=== PATIENT | female | born 1945 | race Caucasian/White ===

== ENCOUNTER 2023-07-11 16:06 | Observation (INO) | payer MEDICARE ==
--- NOTE | 2023-07-11 16:26 | ED ---
General Adult HPI - General Source: patient, RN notes reviewed, Caregiver Mode of arrival: wheelchair Limitations: no limitations <Britni Cason - Last Filed: 07/11/23 16:23> <Joshua Castro - Last Filed: 07/11/23 22:22> - General Stated complaint: Eye issues-sent from Eye Dr Time Seen by Provider: 07/11/23 16:23 - History of Present Illness Initial comments: Quick note: 78 year old female presents to the emergency department for eval uation sent from automotive service writer, Dr. Baker. Patients caregiver states that she saw the eye doctor today and he told her that there were new plaques in her eye. She states she believes that this is her left eye. He advised patient to come to for lab work and CT. (Britni Cason) Patient is a 78-year-old female who was sent in by her automotive service writer Dr. Baker for stroke workup. Patient has a history of Alzheimer's dementia and usually is A and O x 1-2 which is her baseline. No acute complaints at this time. 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 Patient denies any acute visual changes in the right eye or other acute complaints but was sent here for stroke workup and possible admission. Patient is at her current baseline status at this time. She has been more tired lately at her nursing facility per patient's family member. No other acute complaints at this time. Does have occasional word finding issues. Presents for further evaluation. No acute neurological changes recently per patient or patient's family. (Joshua Castro) - Related Data Home Medications Medication Instructions Recorded Confirmed Benazepril HCl [Lotensin] 20 mg PO DAILY 07/11/23 07/11/23 Bisoprolol-Hctz 10-6.25 mg [Ziac 1 tab PO DAILY 07/11/23 07/11/23 10-6.25 MG] Cholecalciferol [Vitamin D3 (125 125 mcg PO DAILY 07/11/23 07/11/23 Mcg = 5000 Iu)] Colestipol HCl 1 gm PO BID@0800,199907/11/23 07/11/23 Folic Acid 1 mg PO DAILY 07/11/23 07/11/23 Ibuprofen [Advil] 200 mg PO DAILY@0800 07/11/23 07/11/23 Melatonin 10 mg PO HS 07/11/23 07/11/23 Mesalamine [Lialda] 2.4 gm PO BID 07/11/23 07/11/23 Multivit-Min/Iron/Folic/Lutein 1 tab PO DAILY 07/11/23 07/11/23 [Centrum Silver Women Tablet] Rivastigmine Tartrate 1.5 mg PO BID 07/11/23 07/11/23 [Rivastigmine] Rosuvastatin Calcium 5 mg PO DAILY 07/11/23 07/11/23 Vit C/E/Zn/Coppr/Lutein/Zeaxan 2 cap PO BID 07/11/23 07/11/23 [Preservision Areds 2 Softgel] Allergies Allergy/AdvReac Type Severity Reaction Status Date / Time gabapentin Allergy Anaphylaxis Verified 07/11/23 17:53 Sulfa (Sulfonamide Allergy Anaphylaxis Verified 07/11/23 17:53 Antibiotics) morphine AdvReac Itching Verified 07/11/23 17:53 Review of Systems ROS Other: All systems not noted in ROS Statement are negative. <Britni Cason - Last Filed: 07/11/23 16:23> ROS Other: All systems not noted in ROS Statement are negative. <Joshua Castro - Last Filed: 07/11/23 22:22> ROS Statement: Those systems with pertinent positive or pertinent negative responses have been documented in the HPI. Review of Systems: CONST: Denies fever EYES: Denies blurry vision ENT: Denies nasal congestion C/V: Denies Chest pain RESP: Denies shortness of breath GI: Denies abdominal pain : Denies dysuria SKIN: Denies rash. MSK: Denies joint pain. NEURO: Denies headache (Joshua Castro) General Exam <Britni Cason - Last Filed: 07/11/23 16:23> <Joshua Castro - Last Filed: 07/11/23 22:22> - General Exam Comments Initial Comments: Visual Physical Exam Vital signs reviewed General: Well-appearing, nontoxic, no acute distress. Head: Normocephalic, atraumatic Eyes: PERRLA, EOMI ENT: Airway patent Chest: Nonlabored breathing Skin: No visual rash, normal skin tone Neuro: Alert and oriented 3 Musculoskeletal: No gross abnormalities (Britni Cason) General: Appears in no acute distress. HEAD: Normal with no signs of head trauma. EYES: PERRLA, EOMI, conjunctiva normal, no discharge. 3 mm and equal bilaterally. ENT: Hearing grossly intact, normal oropharynx. RESPIRATORY: Clear breath sounds bilaterally. No wheezes, rales, or rhonchi. C/V: Regular rate and rhythm. S1 and S2 auscultated, no edema, peripheral pulses 2+ and intact throughout ABD: Abd is soft, nontender, nondistended EXT: Normal range of motion, no obvious deformity SKIN: No rashes or lesions observed on exposed skin. NEURO: Alert and oriented x 1-2 which is patient's baseline with history of dementia. No focal deficits. NIH is 0 for acute deficits. Has chronic word finding issues which is not new. Symptoms confirmed and the chronicity with patient's family member who is at bedside. (Joshua Castro) Course Vital Signs 07/11/23 07/11/23 16:11 19:48 Temperature 97.4 F L Pulse Rate 81 66 Respiratory 18 17 Rate Blood Pressure 143/71 176/93 O2 Sat by Pulse 94 L 99 Oximetry Medical Decision Making <Britni Cason - Last Filed: 07/11/23 16:23> - Lab Data Result diagrams: 07/11/23 16:54 07/11/23 16:54 - EKG Data -: EKG Interpreted by Tx <Joshua Castro - Last Filed: 07/11/23 22:22> - Medical Decision Making Quick note preformed and electronically signed by Britni Cason PA-C (Britni Cason) Was pt. sent in by a medical professional or institution ([facility], BO[employer], urgent care, hospital, or custodial...) When possible be specific @ -No Did you speak to anyone other than the patient for history (EMS, parent, family, police, friend...)? What history was obtained from this source @ -Spoke with patient's sister who is the primary historian for the patient. Did you review nursing and triage notes (agree or disagree)? Why? @ -I reviewed and agree with nursing and triage notes Were old charts reviewed (outside hosp., previous admission, EMS record, old EKG, old radiological studies, urgent care reports/EKG's, custodial records)? Report findings @ -Reviewed charts from Dr. Baker's office and evaluation including the finding of the plaque in the right eye. Differential Diagnosis (chest pain, altered mental status, abdominal pain women, abdominal pain men, vaginal bleeding, weakness, fever, dyspnea, syncope, headache, dizziness, GI bleed, back pain, seizure, CVA, palpatations, mental health, musculoskeletal)? @ -Differential CVA Ischemic stroke, hemorrhagic stroke, brain tumor, atypical migraine, Wernicke's encephalopathy, seizure, multiple sclerosis, meningitis, encephalitis, hypoglycemia, Guillain-Zimmerman, electrolytes disturbance, myasthenia gravis.... This is not meant to be an all-inclusive list EKG interpreted by me (3pts min.). @ -As above X-rays interpreted by me (1pt min.). @ -Chest x-ray reveals no obvious acute cardiopulmonary process. CT interpreted by me (1pt min.). @ -CT of the brain reveals no obvious acute intracranial process. CT angiogram of the head and neck reveals no obvious acute process. U/S interpreted by me (1pt. min.). @ -None done What testing was considered but not performed or refused? (CT, X-rays, U/S, labs)? Why? @ -None What meds were considered but not given or refused? Why? @ -None Did you discuss the management of the patient with other professionals (professionals i.e. DrJewels, PA, BOARD HANDLER, lab, RT, psych nurse, social work specialist, instructor business education, teacher, upscale security officer, case planner)? Give summary @ -Discussed with neurologist, Dr. Canales who was in agreement with plan for admission. Recommended admission for MRI evaluation as patient was sent by automotive service writer with this concern. Discussed results with him. He was other shen in agreement this plan. Discussed with admitting team, Dr. Subramanian who is covering for Dr. Lynch who accepted the admission. Was smoking cessation discussed for >3mins.? @ -No Was critical care preformed (if so, how long)? @ -No Were there social determinants of health that impacted care today? How? (Homelessness, low income, unemployed, alcoholism, drug addiction, transportation, low edu. Level, literacy, decrease access to med. care, prison, rehab)? @ -No Was there de-escalation of care discussed even if they declined (Discuss DNR or withdrawal of care, Hospice)? DNR status @ -No What co-morbidities impacted this encounter? (DM, HTN, Smoking, COPD, CAD, Cancer, CVA, ARF, Chemo, Hep., AIDS, mental health diagnosis, sleep apnea, morbid obesity)? @ -Alzheimer's dementia Was patient admitted / discharged? Hospital course, mention meds given and route, prescriptions, significant lab abnormalities, going to OR and other pertinent info. @ -Based on patient's presentation and physical exam, presents for stroke evaluation. A plaque was found incidentally on routine ophthalmology exam. Sent by Dr. Baker's office. NIH is currently 0 for any acute process. Patient is not a tPA candidate as risks for outweigh the benefits with an NIH of 0. Family was in agreement with this plan. She is currently at her baseline mental status. We will obtain CT imaging, as well as stroke labs. Family in agreement this plan. Laboratory studies remarkable for what appears to be a UTI. Urine culture sent. Patient was started on IV Rocephin. EKG shows no signs of acute ischemia. Imaging unremarkable. I did discuss the imaging results with Dr. Canales of neurology who recommended admission for MRI and further workup. I discussed this with family who was in agreement this plan. I spoke with the admitting physician, Dr. Subramanian who accepted the patient. She is covering for Dr. Lynch. Undiagnosed new problem with uncertain prognosis? @ -No Drug Therapy requiring intensive monitoring for toxicity (Heparin, Nitro, Insulin, Cardizem)? @ -No Were any procedures done? @ -No Diagnosis/symptom? @ -Eye plaque, evaluation for CVA,Dementia Acute, or Chronic, or Acute on Chronic? @ -Acute Uncomplicated (without systemic symptoms) or Complicated (systemic symptoms)? @ -Uncomplicated Side effects of treatment? @ -No Exacerbation, Progression, or Severe Exacerbation? @ -No Poses a threat to life or bodily function? How? (Chest pain, [place], [place], pneumonia, PE, COPD, DKA, ARF, appy, cholecystitis, CVA, Diverticulitis, Homicidal, Suicidal, threat to staff... and all critical care pts) @ -Unlikely (Joshua Castro) - Lab Data Lab Results 07/11/23 07/11/23 07/11/23 Range/Units 16:54 16:54 16:54 WBC 9.8 (3.8-10.6) k/uL RBC 4.79 (3.80-5.40) m/uL Hgb 14.4 (11.4-16.0) gm/dL Hct 43.2 (34.0-46.0) % MCV 90.2 (80.0-100.0) fL MCH 30.1 (25.0-35.0) pg MCHC 33.3 (31.0-37.0) g/dL RDW 14.2 (11.5-15.5) % Plt Count 359 (150-450) k/uL MPV 7.2 Neutrophils % 66 % Lymphocytes % 23 % Monocytes % 6 % Eosinophils % 2 % Basophils % 1 % Neutrophils # 6.4 (1.3-7.7) k/uL Lymphocytes # 2.3 (1.0-4.8) k/uL Monocytes # 0.6 (0-1.0) k/uL Eosinophils # 0.2 (0-0.7) k/uL Basophils # 0.1 (0-0.2) k/uL PT 10.1 (10.0-12.5) sec INR 0.9 (<1.2) APTT 22.9 (22.0-30.0) sec Sodium 131 L (137-145) mmol/L Potassium 3.6 (3.5-5.1) mmol/L Chloride 96 L (98-107) mmol/L Carbon Dioxide 27 (22-30) mmol/L Anion Gap 8 mmol/L BUN 11 (7-17) mg/dL Creatinine 0.58 (0.52-1.04) mg/dL Est GFR (CKD-EPI)AfAm >90 (>60 ml/min/1.73 sqM) Est GFR (CKD-EPI)NonAf 89 (>60 ml/min/1.73 sqM) Glucose 104 H (74-99) mg/dL Calcium 9.8 (8.4-10.2) mg/dL Total Bilirubin 0.4 (0.2-1.3) mg/dL AST 27 (14-36) U/L ALT 18 (4-34) U/L Alkaline Phosphatase 101 (38-126) U/L Creatine Kinase 66 (30-135) U/L C-Reactive Protein <0.5 (<1.0) mg/dL Total Protein 7.7 (6.3-8.2) g/dL Albumin 4.7 (3.5-5.0) g/dL Urine Color Urine Appearance (Clear) Urine pH (5.0-8.0) Ur Specific [place] (1.001-1.035) Urine Protein (Negative) Urine Glucose (UA) (Negative) Urine Ketones (Negative) Urine Blood (Negative) Urine Nitrite (Negative) Urine Bilirubin (Negative) Urine Urobilinogen (<2.0) mg/dL Ur Leukocyte Esterase (Negative) Urine RBC (0-5) /hpf Urine WBC (0-5) /hpf Urine WBC Clumps (None) /hpf Ur Squamous Epith Cells (0-4) /hpf Urine Bacteria (None) /hpf Influenza Type A (PCR) (Not Detectd) Influenza Type B (PCR) (Not Detectd) RSV (PCR) (Not Detectd) SARS-CoV-2 (PCR) (Not Detectd) 07/11/23 07/11/23 Range/Units 16:55 16:55 WBC (3.8-10.6) k/uL RBC (3.80-5.40) m/uL Hgb (11.4-16.0) gm/dL Hct (34.0-46.0) % MCV (80.0-100.0) fL MCH (25.0-35.0) pg MCHC (31.0-37.0) g/dL RDW (11.5-15.5) % Plt Count (150-450) k/uL MPV Neutrophils % % Lymphocytes % % Monocytes % % Eosinophils % % Basophils % % Neutrophils # (1.3-7.7) k/uL Lymphocytes # (1.0-4.8) k/uL Monocytes # (0-1.0) k/uL Eosinophils # (0-0.7) k/uL Basophils # (0-0.2) k/uL PT (10.0-12.5) sec INR (<1.2) APTT (22.0-30.0) sec Sodium (137-145) mmol/L Potassium (3.5-5.1) mmol/L Chloride (98-107) mmol/L Carbon Dioxide (22-30) mmol/L Anion Gap mmol/L BUN (7-17) mg/dL Creatinine (0.52-1.04) mg/dL Est GFR (CKD-EPI)AfAm (>60 ml/min/1.73 sqM) Est GFR (CKD-EPI)NonAf (>60 ml/min/1.73 sqM) Glucose (74-99) mg/dL Calcium (8.4-10.2) mg/dL Total Bilirubin (0.2-1.3) mg/dL AST (14-36) U/L ALT (4-34) U/L Alkaline Phosphatase (38-126) U/L Creatine Kinase (30-135) U/L C-Reactive Protein (<1.0) mg/dL Total Protein (6.3-8.2) g/dL Albumin (3.5-5.0) g/dL Urine Color Colorless Urine Appearance Cloudy H (Clear) Urine pH 6.0 (5.0-8.0) Ur Specific [place] 1.005 (1.001-1.035) Urine Protein Negative (Negative) Urine Glucose (UA) Negative (Negative) Urine Ketones Negative (Negative) Urine Blood Trace H (Negative) Urine Nitrite Positive H (Negative) Urine Bilirubin Negative (Negative) Urine Urobilinogen <2.0 (<2.0) mg/dL Ur Leukocyte Esterase Large H (Negative) Urine RBC 5 (0-5) /hpf Urine WBC >182 H (0-5) /hpf Urine WBC Clumps Many H (None) /hpf Ur Squamous Epith Cells 1 (0-4) /hpf Urine Bacteria Moderate H (None) /hpf Influenza Type A (PCR) Not Detected (Not Detectd) Influenza Type B (PCR) Not Detected (Not Detectd) RSV (PCR) Not Detected (Not Detectd) SARS-CoV-2 (PCR) Not Detected (Not Detectd) - EKG Data EKG Comments: 12-lead Electrocardiogram Interpretation Note EKG was reviewed and interpreted by myself. 12-lead ECG performed at 1849 is interpreted by me as revealing normal sinus rhythm at a rate of 62 beats per minute. [place] is normal. ME interval is 169 ms, QRS durations 93 ms, QTc is 442 ms.. There were no ST or T wave abnormalities to suggest myocardial ischemia or injury. R wave progression across the precordium was satisfactory. By my interpretation this EKG is non-diagnostic for acute ischemia. (Joshua Castro) Disposition <Britni Cason - Last Filed: 07/11/23 16:23> Time of Disposition: 21:30 <Joshua Castro - Last Filed: 07/11/23 22:22> Clinical Impression: Hollenhorst plaque, right eye, Dementia Disposition: ADMITTED IP TO THIS HOSP Condition: Stable Referrals: To Lynch MD [Primary Care Provider] - 1-2 days
[2023-07-11] MEDS: SODIUM CHLORIDE 0.9% 1,000 ML IV STA (17:16)
[2023-07-11 17:21] LABS: Basophils # (A) 0.1 k/uL (0-0.2); Basophils % (A) 1 %; Eosinophils # (A) 0.2 k/uL (0-0.7); Eosinophils % (A) 2 %; HCT 43.2 % (34.0-46.0); HGB 14.4 gm/dL (11.4-16.0); Lymphocytes # (A) 2.3 k/uL (1.0-4.8); Lymphocytes % (A) 23 %; MCH 30.1 pg (25.0-35.0); MCHC 33.3 g/dL (31.0-37.0); MCV 90.2 fL (80.0-100.0); Mean Platelet Volume 7.2; Monocytes # (A) 0.6 k/uL (0-1.0); Monocytes % (A) 6 %; Neutrophils # (A) 6.4 k/uL (1.3-7.7); Neutrophils % (A) 66 %; Platelet Count 359 k/uL (150-450); RBC 4.79 m/uL (3.80-5.40); RDW 14.2 % (11.5-15.5); WBC 9.8 k/uL (3.8-10.6)
[2023-07-11 17:27] LABS: INR 0.9 (<1.2); Partial Thromboplastin Time 22.9 sec (22.0-30.0); Prothrombin Time 10.1 sec (10.0-12.5)
[2023-07-11 17:30] LABS: ALT 18 U/L (4-34); AST 27 U/L (14-36); African American GFR (CKD) >90 (>60 ml/min/1.73 sqM); Albumin 4.7 g/dL (3.5-5.0); Alkaline Phosphatase 101 U/L (38-126); Anion Gap 8 mmol/L; Blood Urea Nitrogen 11 mg/dL (7-17); C Reactive Protein <0.5 mg/dL (<1.0); Calcium 9.8 mg/dL (8.4-10.2); Carbon Dioxide 27 mmol/L (22-30); Chloride 96 mmol/L (98-107); Creatine Kinase 66 U/L (30-135); Glucose 104 mg/dL (74-99); Non-African American GFR(CKD) 89 (>60 ml/min/1.73 sqM); Potassium 3.6 mmol/L (3.5-5.1); Sodium 131 mmol/L (137-145); Total Bilirubin 0.4 mg/dL (0.2-1.3); Total Protein 7.7 g/dL (6.3-8.2)
[2023-07-11 17:33] LABS: Appearance,Urine Cloudy (Clear); Bacteria,Urine Moderate /hpf; Bilirubin,Urine Negative (Negative); Blood,Urine Trace (Negative); Color,Urine Colorless; Glucose,Urine (UA) Negative (Negative); Ketones,Urine Negative (Negative); Leukocyte Esterase,Urine Large (Negative); Nitrite,Urine Positive (Negative); Protein,Urine Negative (Negative); RBC,Urine 5 /hpf (0-5); Specific Gravity,Urine 1.005 (1.001-1.035); Squamous Epithelial Cell,Urine 1 /hpf (0-4); Urobilinogen,Urine <2.0 mg/dL (<2.0); WBC,Urine >182 /hpf (0-5)
--- NOTE | 2023-07-11 17:48 | XR ---
EXAMINATION TYPE: XR chest 2V DATE OF EXAM: 07/11/2023 COMPARISON: None HISTORY: 78-year-old female confusion, altered mental status TECHNIQUE: PA and lateral views FINDINGS: ACF hardware. Hyperinflation. Heart upper limits of normal in size. Tortuous/ectatic thoracic aorta. No consolidation or pleural effusion. IMPRESSION: COPD and tortuous/ectatic thoracic aorta. No acute process seen.
--- NOTE | 2023-07-11 19:45 | CT ---
EXAMINATION TYPE: CT brain wo con CT DLP: 1129.3 mGycm, Automated exposure control for dose reduction was used. DATE OF EXAM: 07/11/2023 7:23 PM COMPARISON: None.. CLINICAL INDICATION:Female, 78 years old with history of Neuro deficit, acute, stroke suspected, ams TECHNIQUE: Brain: Axial CT images of the brain were obtained with coronal and sagittal reformats created and rev iewed. Contrast used: None. Oral contrast used: None. FINDINGS: Extra-axial spaces: No abnormal extra-axial fluid collections. Basilar cisterns are patent. Ventricular system: Ventricles appear dilated in proportion to the degree of cerebral atrophy. Cerebral parenchyma: No increased attenuation to suggest acute intraparenchymal hemorrhage. The gra y-white matter interface appears maintained. Severe generalized brain atrophy. Scattered hypoattenu ating areas are seen within the cerebral white matter, nonspecific but most often seen with chronic m icrovascular ischemic changes; moderate/severe in degree. Cerebellum: No acute abnormality. Mass effect: No evidence of mass effect or midline shift. Intracranial vasculature: Atherosclerotic calcifications of the larger arteries near the skull base. Soft tissues: No acute or concerning abnormality. Visualized orbits: Orbital contents appear grossly intact. There has likely been previous lens surg richi. Calvarium/osseous structures: No evidence of calvarial fracture. A couple of small surgical screws at the posterior aspect of the right zygomatic arch. Paranasal sinuses and mastoid air cells: No significant mucosal thickening or fluid accumulation. Den sity in the left anterior ethmoid air cell could related to osteoma? MRI is more sensitive for detecting acute processes such as infarct, and may be considered if clinica lly warranted. IMPRESSION: 1. No CT evidence of an acute intracranial abnormality. 2. Atrophy and chronic microvascular ischemic white matter changes.
--- NOTE | 2023-07-11 20:55 | CT ---
EXAMINATION TYPE: CT angio head neck DATE OF EXAM: 07/11/2023 7:37 PM COMPARISON: Correlation same day CT head CLINICAL INDICATION:Female, 78 years old with history of Neuro deficit, acute, stroke suspected; PHH, ams TECHNIQUE: Axially acquired helical CT angiogram of the head and neck was obtained with contrast. Axi al images are supplemented with 3D reconstructions which [facility] NASCET criteria used. Contrast used: 65 mL of Isovue 370 with IV Contrast, Oral contrast used: None. CT DLP: 297 mGycm, Automated exposure control for dose reduction was used. FINDINGS: Limitations in the neck by extensive artifact from spinal fusion and dental hardware. CTA Neck: Aortic arch is patent without evidence of dissection flap. There is moderate mixed atherosclerotic di sease along the arch. There is a 3 vessel branch pattern. Right carotid system: The common carotid is patent. Bifurcation is patent with mild/moderate mixed di sease. There is no hemodynamically significant diameter stenosis, dissection, nor pseudoaneurysm pres ent. Left carotid system: The common carotid is patent. Moderate mixed atherosclerotic disease of the amato tid bifurcation with less than 50 % stenosis of the ICA. ECA not well seen due to extensive artifacts . Vertebral arteries: Mild atherosclerotic disease with mild narrowing of the origin of the bilateral v ertebral arteries suggested; there are significant limitations by artifact. Thereafter, the right is patent to the skull base but the left appears patent and diminutive, not seen to be opacified in the superior neck. There is some reconstitution of flow seen in the distal intracranial V4 segment. The right vertebral artery is dominant. Other: Visualized neck soft tissues show no concerning abnormality. Cervical spine shows extensive po stoperative changes with ACDF hardware at C2-C3-C4 and C5-C6. Bilateral pedicle screws and posterior fixation rods at C3 and C4. Posterior cerclage wires at C5-C6. The spinal canal and neural foramina a ppear grossly patent by CT. Imaged portions of the lung apices are clear. CTA Head: Calcifications of the siphons and supraclinoid ICAs with mild ectasia seen, no significant stenosis. The bifurcations, MCAs, ACAs appear normally patent. Normal distal arborization pattern of the MCAs. Short patent anterior communicating artery appears to be present. Right intracranial vertebral appears to enhance normally. The left initially appears nonopacified but seems reconstituted mid intracranial portion, then joins the right to form the basilar. Basilar is f airly diminutive, appears to terminate as minor contributing arteries to the bilateral production control scheduler, which ap pear largely supplied from the anterior circulation ( origin of the production control scheduler). The proximal production control scheduler mari ear patent as visualized. No intracranial large vessel occlusion, hemodynamically significant stenosis, aneurysm, dissection, o r arteriovenous malformation is shown. The dural venous sinuses appear grossly patent without evidence of thrombosis. Other: Please refer to same-day CT head report.. IMPRESSION: CTA neck: Patent CTA neck. Mild to moderate mixed atherosclerotic disease bilaterally with no significant steno sis, dissection, nor pseudoaneurysm identified. CTA head: Patent CTA head. No intracranial large vessel occlusion, significant stenosis, or sizable aneurysm de tected in the limits of CTA.
[2023-07-11] MEDS: ASPIRIN 325 MG TAB PO STA (22:37)
[2023-07-12 03:49] LABS: Erythrocyte Sedimentation Rate 31 mm/Hr (0-30)
[2023-07-12] MEDS: ASPIRIN 325 MG TAB PO SCH (09:56)
[2023-07-12] MEDS: ATORVASTATIN 10 MG TAB PO SCH (09:57)
[2023-07-12] MEDS: DONEPEZIL 5 MG TAB PO SCH (09:59)
[2023-07-12] MEDS: BALSALAZIDE DISODIUM 750 MG CAPSULE PO SCH (09:59)
[2023-07-12] MEDS: lisinopriL 20 MG TAB PO SCH (10:01)
[2023-07-12] MEDS: BISOPROLOL-HCTZ 10-6.25 MG 1 EACH TAB PO SCH (10:01)
[2023-07-12 13:25] LABS: Chol/HDL Ratio 2.22 Ratio; LDL Cholesterol,Calculated 79.9 mg/dL (0.0-131.0); VLDL Calculation 14.06 mg/dL (5.00-40.00)
--- NOTE | 2023-07-12 16:44 | CA ---
Transthoracic Echo Report Name: Maite Brewer Age: 78 Gender: F : 1945 Exam Date: 07/12/2023 15:04 Exam Location: [facility] Ht (in): 68 Wt (lb): 116 Ordering Physician: Joshua Castro MD Attending/Referring Phys: [employer] Head Melissa Bernal RDCS Procedure CPT: Indications: stroke eval Cardiac Hx: Technical Quality: Fair Contrast 1: Total Dose (mL): Contrast 2: Total Dose (mL): MEASUREMENTS (Male / Female) Normal Values 2D ECHO LV Diastolic Diameter PLAX 3.2 cm 4.2 - 5.9 / 3.9 - 5.3 cm LV Systolic Diameter PLAX 2.2 cm IVS Diastolic Thickness 0.9 cm 0.6 - 1.0 / 0.6 - 0.9 cm LVPW Diastolic Thickness 1.1 cm 0.6 - 1.0 / 0.6 - 0.9 cm LV Relative Wall Thickness 0.6 RV Internal Dim ED PLAX 3.1 cm LA Volume 61.6 cm??? 18 - 58 / 22 - 52 cm??? LA Volume Index 39.1 cm???/m??? 16 - 28 cm???/m??? M-MODE Aortic Root Diameter MM 2.3 cm LA Systolic Diameter MM 3.8 cm LA Ao Ratio MM 1.6 DOPPLER AV Peak Velocity 201.9 cm/s AV Peak Gradient 16.3 mmHg AV Mean Velocity 137.6 cm/s AV Mean Gradient 8.5 mmHg AV Velocity Time Integral 42.7 cm LVOT Peak Velocity 92.5 cm/s LVOT Peak Gradient 3.4 mmHg LVOT Velocity Time Integral 18.2 cm MV Peak Velocity 120.7 cm/s MV Peak Gradient 5.8 mmHg MV Mean Velocity 62.0 cm/s MV Mean Gradient 1.9 mmHg MV Velocity Time Integral 35.1 cm MV Area PHT 2.8 cm??? Mitral E Point Velocity 99.7 cm/s Mitral A Point Velocity 95.2 cm/s Mitral E to A Ratio 1.0 MV Deceleration Time 274.8 ms MV E' Velocity 5.2 cm/s Mitral E to MV E' Ratio 19.3 TR Peak Velocity 199.0 cm/s TR Peak Gradient 15.8 mmHg Right Ventricular Systolic Press 20.4 mmHg FINDINGS Left Ventricle Mildly increased left ventricular wall thickness. Left ventricular cavity size normal. Normal left ventricular systolic function with no obvious regional wall motion abnormalities. Left ventricular ejection fraction is estimated at 55-60 %. Right Ventricle Normal right ventricular size and function. Right ventricular systolic pressure within normal limits. Right Atrium Mild right atrial dilatation. Left Atrium Mildly increased left atrial volume. Mildly increased left atrial area. Mitral Valve Structurally normal mitral valve. Mitral valve thickened. Severe mitral annular calcification. Mild mitral regurgitation. Aortic Valve Mild aortic stenosis with a peak gradient of 16 mmHg and a mean gradient of 9 mmHg. Tricuspid Valve Structurally normal tricuspid valve. Mild tricuspid regurgitation. Pulmonic Valve Structurally normal pulmonic valve. Pericardium Small pericardial effusion Aorta Normal size aortic root and proximal ascending aorta. CONCLUSIONS Mildly increased left ventricular wall thickness Left ventricular ejection fraction 55-60% Mildly dilated left atrium Severe mitral calcification Mild mitral regurgitation Mild aortic stenosis Mild tricuspid regurgitation Echo density noted in the right atrium adjacent to the eustachian valve. Consider WARREN if clinically indicated. Previewed by: Dr. Kevin Vásquez DO (Electronically Signed) Final Date: 12 Jul 2023 16:44
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
--- NOTE | 2023-07-12 17:19 | P.HPIM ---
History of Present Illness H&P Date: 07/12/23 Chief Complaint: Stroke workup 78-year-old female, history of hypertension, hyperlipidemia, who was sent in by her chief information officer Dr. Baker for stroke workup. Patient has a history of Alzheimer's dementia and usually is A and O x 1-2 which is her baseline. No acute complaints at this time. Has had a normal 6-month follow-up following cataract surgery when her chief information officer saw a new Hollenhorst plaque of the right eye. Patient denies any acute visual changes in the right eye or other acute complaints but was sent here for stroke workup and possible admission. Patient is at her current baseline status at this time. She has been more tired lately at her nursing facility per patient's family member. No other acute complaints at this time. Does have occasional word finding issues. Presents for further evaluation. No acute neurological changes recently per patient or patient's family CT head revealed no CT evidence for any acute intracranial abnormality. Atrophy and chronic microvascular ischemic white matter changes. CTA of neck showed patent CTA neck. Mild to moderate mixed atherosclerotic disease bilaterally with no significant stenosis, dissection or pseudoaneurysm. CTA of the head showed no intracranial large vessel occlusion, significant stenosis or sizable aneurysm detected in the limits of CTA. EKG shows normal sinus rhythm without any acute ST or T wave changes Blood work reveals WBC 9.8, hemoglobin of 14.4 and platelet count of 359, sodium 131, potassium 3.6, BUNs/creatinine of 11/0.58, UA is positive for nitrites and leukocyte esterase with moderate amount of bacteria and WBCs Review of Systems REVIEW OF SYSTEMS: CONSTITUTIONAL: No fever, no malaise, no fatigue. HEENT: No recent visual problems or hearing problems. Denied any sore throat. CARDIOVASCULAR: No chest pain, orthopnea, PND, no palpitations, no syncope. PULMONARY: No shortness of breath, no cough, no hemoptysis. GASTROINTESTINAL: No diarrhea, no nausea, no vomiting, no abdominal pain. NEUROLOGICAL: No headaches, no weakness, no numbness. HEMATOLOGICAL: Denies any bleeding or petechiae. GENITOURINARY: Denies any burning micturition, frequency, or urgency. MUSCULOSKELETAL/RHEUMATOLOGICAL: Denies any joint pain, swelling, or any muscle pain. ENDOCRINE: Denies any polyuria or polydipsia. The rest of the 14-point review of systems is negative. Past Medical History Past Medical History: Dementia, Hyperlipidemia, Hypertension, Memory Impairment, Osteoarthritis (OA) History of Any Multi-Drug Resistant Organisms: None Reported Past Surgical History: Hysterectomy, Orthopedic Surgery Additional Past Surgical History / Comment(s): catarac surgery Past Psychological History: No Psychological Hx Reported Smoking Status: Never smoker Past Alcohol Use History: None Reported Past Drug Use History: None Reported Medications and Allergies Home Medications Medication Instructions Recorded Confirmed Type Benazepril HCl [Lotensin] 20 mg PO DAILY 07/11/23 07/11/23 History Bisoprolol-Hctz 10-6.25 mg [Ziac 1 tab PO DAILY 07/11/23 07/11/23 History 10-6.25 MG] Cholecalciferol [Vitamin D3 (125 125 mcg PO DAILY 07/11/23 07/11/23 History Mcg = 5000 Iu)] Colestipol HCl 1 gm PO BID@0800,2000 07/11/23 07/11/23 History Folic Acid 1 mg PO DAILY 07/11/23 07/11/23 History Ibuprofen [Advil] 200 mg PO DAILY@0800 07/11/23 07/11/23 History Melatonin 10 mg PO HS 07/11/23 07/11/23 History Mesalamine [Lialda] 2.4 gm PO BID 07/11/23 07/11/23 History Multivit-Min/Iron/Folic/Lutein 1 tab PO DAILY 07/11/23 07/11/23 History [Centrum Silver Women Tablet] Rivastigmine Tartrate 1.5 mg PO BID 07/11/23 07/11/23 History [Rivastigmine] Rosuvastatin Calcium 5 mg PO DAILY 07/11/23 07/11/23 History Vit C/E/Zn/Coppr/Lutein/Zeaxan 2 cap PO BID 07/11/23 07/11/23 History [Preservision Areds 2 Softgel] Allergies Allergy/AdvReac Type Severity Reaction Status Date / Time gabapentin Allergy Anaphylaxis Verified 07/11/23 17:53 Sulfa (Sulfonamide Allergy Anaphylaxis Verified 07/11/23 17:53 Antibiotics) morphine AdvReac Itching Verified 07/11/23 17:53 Physical Exam Vitals: Vital Signs Temp Pulse Resp BP Pulse Ox 07/12/23 10:01 68 22 131/85 96 07/12/23 05:58 97.9 F 72 17 134/81 96 07/12/23 03:59 69 17 128/74 95 07/12/23 02:25 69 18 130/73 98 07/11/23 22:44 66 24 164/91 98 07/11/23 19:48 66 17 176/93 99 07/11/23 16:11 97.4 F L 81 18 143/71 94 L Intake and Output 07/11/23 07/12/23 07/12/23 22:59 06:59 14:59 Other: Weight 52.617 kg General: Appears in no acute distress. HEAD: Normal with no signs of head trauma. EYES: PERRLA, EOMI, conjunctiva normal, no discharge. 3 mm and equal bilaterally. ENT: Hearing grossly intact, normal oropharynx. RESPIRATORY: Clear breath sounds bilaterally. No wheezes, rales, or rhonchi. C/V: Regular rate and rhythm. S1 and S2 auscultated, no edema, peripheral pulses 2+ and intact throughout ABD: Abd is soft, nontender, nondistended EXT: Normal range of motion, no obvious deformity SKIN: No rashes or lesions observed on exposed skin. NEURO: Alert and oriented x 1-2 which is patient's baseline with history of dementia. No focal deficits. NIH is 0 for acute deficits. Has chronic word finding issues which is not new. Symptoms confirmed and the chronicity with patient's family member who is at bedside. Results CBC & Chem 7: 07/11/23 16:54 07/11/23 16:54 Labs: Abnormal Lab Results - Last 24 Hours (Table) 07/11/23 07/11/23 07/11/23 Range/Units 16:54 16:54 16:55 ESR 31 H (0-30) mm/Hr Sodium 131 L (137-145) mmol/L Chloride 96 L (98-107) mmol/L Glucose 104 H (74-99) mg/dL Urine Appearance Cloudy H (Clear) Urine Blood Trace H (Negative) Urine Nitrite Positive H (Negative) Ur Leukocyte Esterase Large H (Negative) Urine WBC >182 H (0-5) /hpf Urine WBC Clumps Many H (None) /hpf Urine Bacteria Moderate H (None) /hpf Assessment and Plan Assessment: 1. 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 Mild to moderate mixed atherosclerotic disease bilaterally with no significant stenosis, dissection or pseudoaneurysm. CTA of the head showed no intracranial large vessel occlusion, significant stenosis or sizable aneurysm detected in the limits of CTA. -- Has been evaluated by neurology is not a candidate for tPA as last known well is not available; NIH stroke scale 0 -- Neurology recommending MRI of the brain -2D echo is ordered and pending Patient was not taking any antiplatelet medication at home. Patient's niece states that high-dose aspirin can trigger ulcerative colitis, which could be very problematic. She okayed for starting aspirin 81 mg daily. --Lipid panel with cholesterol 171, LDL 79.9, HDL 77, triglycerides 70. Continue Crestor 5 mg daily. It was started about 3 months ago. Recommend target LDL <70. -Check hemoglobin A1c, B12, folate. 2. UTI; will start patient on IV Rocephin; will monitor CBC and make further recommendations once urine culture results are available 3. Hyponatremia; will start patient on normal saline at a rate of 75 cc an hour; monitor renal function electrolytes 4. Hypertension; Ziac 10-6.25 mg daily; BenzePrO 20 mg daily 5. Hyperlipidemia; Lipitor 10 mg daily; Crestor 5 mg daily 6. Alzheimer's dementia; patient is currently on rivastigmine 1.5 mg twice daily; neurology recommending to optimize dose; Aricept 5 mg daily 7. Ulcerative colitis; continue home regimen DVT prophylaxis; SCDs CODE STATUS; full code
[2023-07-12] MEDS ORDERED: NON FORMULARY DRUG (Colestipol Hcl [Colestipol Hcl] 1 GM Tablet) PO SCH (20:00)
[2023-07-12] MEDS: MELATONIN 5 MG TABLET PO SCH (21:23)
[2023-07-13] MEDS: ASPIRIN 81 MG PO SCH (10:09)
[2023-07-13] MEDS: MULTIVITAMINS, THERA 1 EACH TAB PO SCH (10:09)
[2023-07-13] MEDS: FOLIC ACID 1 MG TAB PO SCH (10:09)
[2023-07-13] MEDS: CHOLECALCIFEROL 125 MCG (5000 IU) TABLET PO SCH (10:09)
[2023-07-13 10:20] LABS: Basophils # (A) 0.1 k/uL (0-0.2); Basophils % (A) 2 %; Eosinophils # (A) 0.2 k/uL (0-0.7); Eosinophils % (A) 3 %; HCT 40.9 % (34.0-46.0); Lymphocytes # (A) 1.5 k/uL (1.0-4.8); Lymphocytes % (A) 20 %; MCHC 31.7 g/dL (31.0-37.0); MCV 91.3 fL (80.0-100.0); Mean Platelet Volume 6.9; Monocytes # (A) 0.7 k/uL (0-1.0); Monocytes % (A) 9 %; Neutrophils # (A) 4.6 k/uL (1.3-7.7); Neutrophils % (A) 64 %; Platelet Count 312 k/uL (150-450); RBC 4.48 m/uL (3.80-5.40); WBC 7.2 k/uL (3.8-10.6)
[2023-07-13 10:31] LABS: African American GFR (CKD) >90 (>60 ml/min/1.73 sqM); Anion Gap 5 mmol/L; Blood Urea Nitrogen 10 mg/dL (7-17); Calcium 9.5 mg/dL (8.4-10.2); Carbon Dioxide 28 mmol/L (22-30); Chloride 101 mmol/L (98-107); Glucose 99 mg/dL (74-99); Non-African American GFR(CKD) 87 (>60 ml/min/1.73 sqM); Potassium 3.7 mmol/L (3.5-5.1); Sodium 134 mmol/L (137-145)
[2023-07-13] MEDS: IBUPROFEN 400 MG TAB PO ONE (16:05)
--- NOTE | 2023-07-13 17:44 | P.PN ---
Subjective Progress Note Date: 07/13/23 78-year-old female, history of hypertension, hyperlipidemia, who was sent in by her dental officer Dr. Baker for stroke workup. Patient has a history of Alzheimer's dementia and usually is A and O x 1-2 which is her baseline. No acute complaints at this time. Has had a normal 6-month follow-up following cataract surgery when her dental officer saw a new Hollenhorst plaque of the right eye. Patient denies any acute visual changes in the right eye or other acute complaints but was sent here for stroke workup and possible admission. Patient is at her current baseline status at this time. She has been more tired lately at her nursing facility per patient's family member. No other acute complaints at this time. Does have occasional word finding issues. Presents for further evaluation. No acute neurological changes recently per patient or patient's family CT head revealed no CT evidence for any acute intracranial abnormality. Atrophy and chronic microvascular ischemic white matter changes. CTA of neck showed patent CTA neck. Mild to moderate mixed atherosclerotic disease bilaterally with no significant stenosis, dissection or pseudoaneurysm. CTA of the head showed no intracranial large vessel occlusion, significant stenosis or sizable aneurysm detected in the limits of CTA. EKG shows normal sinus rhythm without any acute ST or T wave changes Blood work reveals WBC 9.8, hemoglobin of 14.4 and platelet count of 359, sodium 131, potassium 3.6, BUNs/creatinine of 11/0.58, UA is positive for nitrites and leukocyte esterase with moderate amount of bacteria and WBCs --MRI is still pending -Echocardiogram is completed and reveals right atrial echodensity and WARREN is recommended; cardiology is consulted -Patient remains on IV Rocephin 2 g daily for UTI; urine culture is pending Objective - Vital Signs Vital signs: Vital Signs Temp 98.2 F 07/13/23 10:13 Pulse 67 07/13/23 10:13 Resp 16 07/13/23 10:13 BP 111/64 07/13/23 10:13 Pulse Ox 97 07/13/23 10:13 FiO2 Intake & Output 07/12/23 07/13/23 07/13/23 18:59 06:59 18:59 Intake Total 118 Balance 118 Weight 52.617 kg Intake: Oral 118 Other: # Voids 1 - Exam HEAD: Normal with no signs of head trauma. EYES: PERRLA, EOMI, conjunctiva normal, no discharge. 3 mm and equal bilaterally. ENT: Hearing grossly intact, normal oropharynx. RESPIRATORY: Clear breath sounds bilaterally. No wheezes, rales, or rhonchi. C/V: Regular rate and rhythm. S1 and S2 auscultated, no edema, peripheral pulses 2+ and intact throughout ABD: Abd is soft, nontender, nondistended EXT: Normal range of motion, no obvious deformity SKIN: No rashes or lesions observed on exposed skin. NEURO: Alert and oriented x 1-2 which is patient's baseline with history of dementia. No focal deficits. NIH is 0 for acute deficits. Has chronic word finding issues which is not new. Symptoms confirmed and the chronicity with patient's family member who is at bedside. - Labs CBC & Chem 7: 07/13/23 09:47 07/13/23 09:47 Labs: Abnormal Lab Results - Last 24 Hours (Table) 07/12/23 07/13/23 Range/Units 09:30 09:47 Sodium 134 L (137-145) mmol/L HDL Cholesterol 77.00 H (40.00-60.00) mg/dL Microbiology - Last 24 Hours (Table) 07/11/23 21:34 Urine Culture - Preliminary Urine,Clean Catch Gram Neg Bacilli Assessment and Plan Assessment: 1. 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 Mild to moderate mixed atherosclerotic disease bilaterally with no significant stenosis, dissection or pseudoaneurysm. CTA of the head showed no intracranial large vessel occlusion, significant sten osis or sizable aneurysm detected in the limits of CTA. -- Has been evaluated by neurology is not a candidate for tPA as last known well is not available; NIH stroke scale 0 -- Neurology recommending MRI of the brain -2D echo is ordered and pending Patient was not taking any antiplatelet medication at home. Patient's niece states that high-dose aspirin can trigger ulcerative colitis, which could be very problematic. She okayed for starting aspirin 81 mg daily. --Lipid panel with cholesterol 171, LDL 79.9, HDL 77, triglycerides 70. Continue Crestor 5 mg daily. It was started about 3 months ago. Recommend target LDL <70. -Check hemoglobin A1c, B12, folate. 2. UTI; will start patient on IV Rocephin; will monitor CBC and make further recommendations once urine culture results are available 3. Hyponatremia; will start patient on normal saline at a rate of 75 cc an hour; monitor renal function electrolytes 4. Hypertension; Ziac 10-6.25 mg daily; BenzePrO 20 mg daily 5. Hyperlipidemia; Lipitor 10 mg daily; Crestor 5 mg daily 6. Alzheimer's dementia; patient is currently on rivastigmine 1.5 mg twice daily; neurology recommending to optimize dose; Aricept 5 mg daily 7. Ulcerative colitis; continue home regimen DVT prophylaxis; SCDs CODE STATUS; full code
[2023-07-14 09:19] LABS: African American GFR (CKD) >90 (>60 ml/min/1.73 sqM); Anion Gap 5 mmol/L; Blood Urea Nitrogen 11 mg/dL (7-17); Carbon Dioxide 30 mmol/L (22-30); Chloride 98 mmol/L (98-107); Glucose 103 mg/dL (74-99); Non-African American GFR(CKD) 85 (>60 ml/min/1.73 sqM); Potassium 3.8 mmol/L (3.5-5.1); Sodium 133 mmol/L (137-145)
--- NOTE | 2023-07-14 10:47 | P.CRDCN ---
History of Present Illness History of present illness: HISTORY OF PRESENT ILLNESS: This is a 78-year-old female with a past medical history significant for hypertension, hyperlipidemia, and Alzheimer's dementia. Patient does not follow with a steel erector apprentice. We have been asked to see the patient in consultation for WARREN. Patient examined at the bedside. Patient's family is at the bedside. 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 CT of the brain was negative. She is scheduled to undergo MRI. Echocardiogram completed revealing ejection fraction 55 to 60%, mildly dilated left atrium, severe mitral calcification, mild mitral regurgitation, mild aortic stenosis, mild tricuspid regurgitation, and echodensity noted in the right atrium adjacent to the eustachian valve. The patient currently denies any chest pain or pressure. She denies any shortness of breath. Vital signs are stable. DIAGNOSTICS: - EKG reveals sinus mechanism with no signs of acute ischemia - Chest xray COPD and torturous thoracic aorta. No acute process seen. - Laboratory data: WBC 7.2. Hemoglobin 13.0. Platelet count 312. Sodium 133. Potassium 3.8. BUN 11. Creatinine 0.66. - Current home cardiac medications include rosuvastatin 5 mg daily, bisoprololhydrochlorothiazide 10-6.25 mg daily, and benazepril 20 mg daily. REVIEW OF SYSTEMS: At the time of my exam: CONSTITUTIONAL: Denies fever or chills. HEENT: Denies blurred vision, vision changes, or eye pain. Denies hemoptysis CARDIOVASCULAR: Denies chest pain. Denies orthopnea. Denies PND. Denies pal pitations RESPIRATORY: Denies shortness of breath. GASTROINTESTINAL: Denies abdominal pain. Denies nausea or vomiting. HEMATOLOGIC: Denies bleeding disorders. GENITOURINARY: Denies any blood in urine. SKIN: Denies pruitis. Denies rash. PHYSICAL EXAM: VITAL SIGNS: Reviewed. GENERAL: Well-developed in no acute distress. HEENT: Head is normocephalic. Pupils are equal, round. Sclerae anicteric. Mucous membranes of the mouth are moist. Neck supple. No JVD or thyromegaly LUNGS: Respirations even and unlabored. Lungs essentially clear to auscultation bilaterally. HEART: Regular rate and rhythm. S1 and S2 heard. ABDOMEN: Soft. Nondistended. Nontender. EXTREMITIES: Normal range of motion. No clubbing or cyanosis. Peripheral pulses intact. No lower extremity edema NEUROLOGIC: Awake and alert. Oriented x 1. 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 Vásquez Further recommendations pending patient course Nurse practitioner note has been reviewed by physician. Signing provider agrees with the documented findings, assessment, and plan of care documented by QUALITY CONTROL MICROBIOLOGIST as a scribe. Past Medical History Past Medical History: Dementia, Hyperlipidemia, Hypertension, Memory Impairment, Osteoarthritis (OA) History of Any Multi-Drug Resistant Organisms: None Reported Past Surgical History: Hysterectomy, Orthopedic Surgery Additional Past Surgical History / Comment(s): catarac surgery Past Anesthesia/Blood Transfusion Reactions: No Reported Reaction Past Psychological History: No Psychological Hx Reported Smoking Status: Never smoker Past Alcohol Use History: None Reported Past Drug Use History: None Reported Medications and Allergies Home Medications Medication Instructions Recorded Confirmed Type Benazepril HCl [Lotensin] 20 mg PO DAILY 07/11/23 07/11/23 History Bisoprolol-Hctz 10-6.25 mg [Ziac 1 tab PO DAILY 07/11/23 07/11/23 History 10-6.25 MG] Cholecalciferol [Vitamin D3 (125 125 mcg PO DAILY 07/11/23 07/11/23 History Mcg = 5000 Iu)] Colestipol HCl 1 gm PO BID@0800,199907/11/23 07/11/23 History Folic Acid 1 mg PO DAILY 07/11/23 07/11/23 History Ibuprofen [Advil] 200 mg PO DAILY@0800 07/11/23 07/11/23 History Melatonin 10 mg PO HS 07/11/23 07/11/23 History Mesalamine [Lialda] 2.4 gm PO BID 07/11/23 07/11/23 History Multivit-Min/Iron/Folic/Lutein 1 tab PO DAILY 07/11/23 07/11/23 History [Centrum Silver Women Tablet] Rivastigmine Tartrate 1.5 mg PO BID 07/11/23 07/11/23 History [Rivastigmine] Rosuvastatin Calcium 5 mg PO DAILY 07/11/23 07/11/23 History Vit C/E/Zn/Coppr/Lutein/Zeaxan 2 cap PO BID 07/11/23 07/11/23 History [Preservision Areds 2 Softgel] Allergies Allergy/AdvReac Type Severity Reaction Status Date / Time gabapentin Allergy Anaphylaxis Verified 07/11/23 17:53 Sulfa (Sulfonamide Allergy Anaphylaxis Verified 07/11/23 17:53 Antibiotics) morphine AdvReac Itching Verified 07/11/23 17:53 Physical Exam Vitals: Vital Signs Temp Pulse Resp BP Pulse Ox 07/14/23 09:31 97.9 F 71 16 108/59 98 07/14/23 04:40 71 18 107/63 97 07/14/23 02:00 15 07/14/23 00:25 61 18 120/65 98 07/13/23 21:27 98.1 F 61 18 152/67 98 07/13/23 20:00 15 07/13/23 16:17 70 18 143/70 97 07/13/23 12:00 98.2 F 65 118/64 97 Intake and Output 07/13/23 07/14/23 07/14/23 22:59 06:59 14:59 Intake Total 0 250 Balance 0 250 Intake: Oral 0 250 Other: # Voids 2 2 Results 07/13/23 09:47 07/14/23 08:24 Comprehensive Metabolic Panel 07/14/23 Range/Units 08:24 Sodium 133 L (137-145) mmol/L Potassium 3.8 (3.5-5.1) mmol/L Chloride 98 (98-107) mmol/L Carbon Dioxide 30 (22-30) mmol/L BUN 11 (7-17) mg/dL Creatinine 0.66 (0.52-1.04) mg/dL Glucose 103 H (74-99) mg/dL Calcium 10.0 (8.4-10.2) mg/dL Current Medications Generic Name Dose Route Start Last Admin Trade Name Freq PRN Reason Stop Dose Admin Aspirin 81 mg 07/13/23 09:00 07/14/23 10:18 Aspirin 81 Mg PO 81 mg DAILY MARY Administration Atorvastatin Calcium 10 mg 07/12/23 09:00 07/14/23 10:18 Atorvastatin 10 Mg Tab PO 10 mg DAILY MARY Administration Balsalazide 2,250 mg 07/12/23 09:00 07/14/23 10:19 Balsalazide Disodium 750 Mg Capsule PO 2,250 mg TID MARY Administration Bisoprolol Fumarate 1 each 07/12/23 09:00 07/14/23 10:19 Bisoprolol-Hctz 10-6.25 Mg 1 Each Tab PO 1 each DAILY MARY Administration Cholecalciferol 125 mcg 07/13/23 09:00 07/14/23 10:18 Cholecalciferol 125 Mcg (5000 Iu) Tablet PO 125 mcg DAILY MARY Administration Donepezil HCl 5 mg 07/12/23 09:00 07/14/23 10:18 Donepezil 5 Mg Tab PO 5 mg DAILY MARY Administration Folic Acid 1 mg 07/13/23 09:00 07/14/23 10:18 Folic Acid 1 Mg Tab PO 1 mg DAILY MARY Administration Ceftriaxone Sodium 2 gm/ 50 mls @ 100 mls/hr 07/12/23 21:00 07/13/23 21:38 Sodium Chloride IVPB 100 mls/hr Q24H MARY Administration Protocol Lisinopril 20 mg 07/12/23 09:00 07/14/23 10:18 Lisinopril 20 Mg Tab PO 20 mg DAILY MARY Administration Melatonin 10 mg 07/12/23 21:00 07/13/23 23:02 Melatonin 5 Mg Tablet PO Not Given HS COUNT INCLUDES THE [facility] Multivitamins 1 each 07/13/23 09:00 07/14/23 10:18 Multivitamins, Thera 1 Each Tab PO 1 each DAILY MARY Administration Intake and Output 07/13/23 07/14/23 07/14/23 22:59 06:59 14:59 Intake Total 0 250 Balance 0 250 Intake: Oral 0 250 Other: # Voids 2 2 07/13/23 09:47 07/14/23 08:24
[2023-07-14] MEDS: SODIUM CHLORIDE 0.9% 500 ML 500 ML IV ONE (13:36)
[2023-07-14] MEDS: fentaNYL (PF) 50 MCG/ML 2 ML AMP IVP ONE ×2 (13:37→13:43)
[2023-07-14] MEDS: BENZOCAINE SPRAY 1 CAN TOPICAL ONE ×2 (13:37→13:40)
[2023-07-14] MEDS: MIDAZOLAM 2 MG/2 ML VIAL IVP ONE ×2 (13:44→13:47)
[2023-07-14] MEDS: fentaNYL (PF) 50 MCG/ML 2 ML AMP ONE (14:26)
--- NOTE | 2023-07-14 14:57 | P.PCN ---
Description of Procedure: Procedure performed: Transesophageal Echocardiogram with color flow doppler, pulsed wave doppler and continuous wave doppler, moderate conscious sedation Moderate conscious sedation: Moderate conscious sedation was supplied with direct supervision of myself using Versed and Fentanyl. Complications: none Indications: Cryptogenic stroke PROCEDURE: After the risks, benefits and alternatives of the above mentioned procedure was explained in detail with the patient, informed consent was obtained. Patient was brought to the lab in a fasting state. Patient was given IV Versed and Fentanyl for sedation. The throat was sprayed with Hurricane to anesthetize the throat. A lubricated Omni probe was then introduced into the esophagus and stomach and multiple views were obtained. 2D echo with color flow doppler, pulsed wave doppler and continuous wave doppler was utilized. Agitated saline bubbles were injected to assess for any intra-atrial shunt. The probe was then removed. Patient tolerated the procedure well. Patient was transferred to the post procedure area in stable and satisfactory condition. FINDINGS: 1. The aortic valve is tricuspid and function normally. There are small Llambl's excrescence on the aortic valve leaflet tips. 2. The mitral valve appears be normal with mild regurgitation. 3. Tricuspid valve appears to be normal. 4. The interatrial septum is intact. No evidence of PFO. 5. Left atrial appendage is free of clot. 6. Left ventricular Ejection fraction is 55% 7. There is prominent eustachian valve noted in the right atrium however no significant mass
[2023-07-14 15:02] VITALS: BMI 17.6
--- NOTE | 2023-07-14 19:06 | MR ---
EXAMINATION TYPE: MR brain wo con DATE OF EXAM: 07/14/2023 6:52 PM CLINICAL INDICATION:Female, 78 years old with history of eval for cva; PHH, Evaluate for CVA, COMPARISON: 07/11/2023 . TECHNIQUE: Multi planar, multi sequence imaging was performed through the brain including: T1, T2, In version recovery, Diffusion weighted imaging, and gradient echo imaging. No gadolinium was given. FINDINGS: Motion limited exam. Moderate cerebral atrophy with proportional dilation of ventricular system. Scattered foci of high T2 signal intensity are seen within the periventricular white matter. Midline structures show no abno rmality. Diffusion-weighted imaging shows no evidence of restricted diffusion. The susceptibility yany ghted images do not reveal any evidence for micro-hemorrhage. The bone marrow signal is within normal limits. Paranasal sinuses and mastoid air cells: No significant paranasal sinus disease. Visualized orbits: Bilaterally aphakia suggested evaluation limited by motion. IMPRESSION: Motion limited exam. 1. No evidence of intracranial mass or acute/subacute infarct. 2. Nonspecific white matter changes, likely secondary to small vessel ischemic disease.
[2023-07-14 22:02] VITALS: TEMP 97.5
--- NOTE | 2023-07-14 22:46 | P.PN ---
Subjective Progress Note Date: 07/14/23 HISTORY OF PRESENT ILLNESS: 78-year-old female, history of hypertension, hyperlipidemia, who was sent in by her fan installer Dr. Baker for stroke workup. Patient has a history of Alzheimer's dementia and usually is A and O x 1-2 which is her baseline. No acute complaints at this time. Has had a normal 6-month follow-up following cataract surgery when her fan installer saw a new Hollenhorst plaque of the right eye. Patient denies any acute visual changes in the right eye or other acute complaints but was sent here for stroke workup and possible admission. Patient is at her current baseline status at this time. She has been more tired lately at her nursing facility per patient's family member. No other acute complaints at this time. Does have occasional word finding issues. Presents for further evaluation. No acute neurological changes recently per patient or patient's family CT head revealed no CT evidence for any acute intracranial abnormality. Atrophy and chronic microvascular ischemic white matter changes. CTA of neck showed patent CTA neck. Mild to moderate mixed atherosclerotic disease bilaterally with no significant stenosis, dissection or pseudoaneurysm. CTA of the head showed no intracranial large vessel occlusion, significant stenosis or sizable aneurysm detected in the limits of CTA. EKG shows normal sinus rhythm without any acute ST or T wave changes Blood work reveals WBC 9.8, hemoglobin of 14.4 and platelet count of 359, sodium 131, potassium 3.6, BUNs/creatinine of 11/0.58, UA is positive for nitrites and leukocyte esterase with moderate amount of bacteria and WBCs 07/14/2023: Echocardiogram showed well-preserved ejection fraction with severe mitral calcification with mild mitral regurgitation mild aortic stenosis ech odensity noted in the right atrium adjacent to the eustachian valve show possible WARREN if clinically indicated. She is scheduled for transesophageal echocardiogram today. Also with neurology request MRI is pending so far today to see if there is any finding consistent with CVA might be affecting her eye stroke. Long discussion with guardian apparently they wish to proceed having patient go to rehab. Patient mobility still significantly decreased. REVIEW OF SYSTEMS: CONSTITUTIONAL: Well-developed no acute respiratory distress. Very confused EYES: No icterus sclerae, no conjunctivitis. EARS, NOSE, MOUTH, THROAT, and FACE: No sore throat, lymphadenopathy, carotid bruits or deformity. RESPIRATORY: No SOB cough or wheezes. CARDIOVASCULAR: No CP, Palpitation, PND, Orthopnea, or angina. GASTROINTESTINAL: No Abd pain, Nausea or vomiting, no Diarrhea or constipation, No GI Bleed, no distention or masses. GENITOURINARY: Negative for Hematuria or UTI, no kidney stones. Mild incontinence INTEGUMENT/BREAST: Negative for any muscular injury with mild osteoarthritis.. HEMATOLOGIC/LYMPHATIC: Negative for bleed or purpura. MUSCULOSKELTAL: Generalized myalgia and arthralgia. NEURLOGICAL: With severe Alzheimer disease with no major neuro loss. BEHAVIORAL/PSYCH: Advanced dementia. ENDOCRINE: Negative. PHYSICAL EXAMINATION: HEAD: Normal with no signs of head trauma. EYES: PERRLA, EOMI, conjunctiva normal, no discharge. 3 mm and equal bilaterally. ENT: Hearing grossly intact, normal oropharynx. RESPIRATORY: Clear breath sounds bilaterally. No wheezes, rales, or rhonchi. C/V: Regular rate and rhythm. S1 and S2 auscultated, no edema, peripheral pulses 2+ and intact throughout ABD: Abd is soft, nontender, nondistended EXT: Normal range of motion, no obvious deformity SKIN: No rashes or lesions observed on exposed skin. NEURO: Alert and oriented x 1-2 which is patient's baseline with history of dementia. No focal deficits. NIH is 0 for acute deficits. Has chronic word finding issues which is not new. Symptoms confirmed and the chronicity with patient's family member who is at bedside. ASSESSMENT AND PLAN: _[place] plaque; with CVA/TIA, still doing workup including transesophageal echocardiogram and MRI of the brain for final conclusion. Patient will remain on combination of Aspirin along with antiplatelet agent which will be held till after the WARREN is done. _ UTI; will start patient on IV Rocephin; will monitor CBC and make further recommendations once urine culture results are available will be switched to oral antibiotic as early as tomorrow. _Hyponatremia; will start patient on normal saline at a rate of 75 cc an hour; monitor renal function electrolytes electrolyte has been much better so far. _Hypertension; still on bisoprolol and lisinopril. _Hyperlipidemia; Lipitor 10 mg daily _Alzheimer's dementia; patient is currently on rivastigmine 1.5 mg twice daily; neurology recommending to optimize dose; Aricept 5 mg daily _Ulcerative colitis; continue home regimen _Debility: The patient will need PT OT. Discussion will consider SNF and possible further rehab. Versus possibility of going back to [facility] to the memory loss unit. Objective - Vital Signs Vital signs: Vital Signs Temp 98.1 F 07/13/23 21:27 Pulse 71 07/14/23 04:40 Resp 18 07/14/23 04:40 BP 107/63 07/14/23 04:40 Pulse Ox 97 07/14/23 04:40 FiO2 Intake & Output 07/13/23 07/13/23 07/14/23 06:59 18:59 06:59 Intake Total 236 250 Balance 236 250 Intake: Oral 236 250 Other: # Voids 1 2 - Labs CBC & Chem 7: 07/13/23 09:47 07/14/23 08:24 Labs: Abnormal Lab Results - Last 24 Hours (Table) 07/13/23 Range/Units 09:47 Sodium 134 L (137-145) mmol/L Vitamin B12 998.0 H (200.0-944.0) pg/mL Microbiology - Last 24 Hours (Table) 07/11/23 21:34 Urine Culture - Preliminary Urine,Clean Catch Gram Neg Bacilli
--- NOTE | 2023-07-15 09:03 | P.PN ---
Subjective Progress Note Date: 07/14/23 Patient was seen for a follow-up. Patient states that she feels "good". Denies any headache. Patient is standing by her bedside. Sitter is present, sitting in the recliner. She continues to be somewhat confused. Appears somewhat argumentative. Objective - Vital Signs Vital signs: Vital Signs Temp 97.5 F L 07/14/23 20:00 Pulse 70 07/14/23 20:00 Resp 16 07/14/23 20:00 BP 145/93 07/14/23 20:00 Pulse Ox 98 07/14/23 20:00 FiO2 Intake & Output 07/14/23 07/14/23 07/15/23 06:59 18:59 06:59 Intake Total 250 120 Balance 250 120 Weight 52.617 kg Intake: IV 120 Invasive Line 2 20 Oral 250 0 Other: # Voids 2 3 # Bowel Movements 2 - Exam Patient is alert and awake in no distress. Offers no new complaints. Examina tion unchanged. Appears pleasant. - Labs CBC & Chem 7: 07/13/23 09:47 07/14/23 08:24 Labs: Abnormal Lab Results - Last 24 Hours (Table) 07/14/23 Range/Units 08:24 Sodium 133 L (137-145) mmol/L Glucose 103 H (74-99) mg/dL Microbiology - Last 24 Hours (Table) 07/11/23 21:34 Urine Culture - Final Urine,Clean Catch Escherichia coli Assessment and Plan Assessment: * Patient admitted directly from storeroom keeper office for seeing "plaque" on ophthalmological examination. Patient does have some floaters, but does not have any significant visual field deficits. Examination is nonfocal. Rule out acute stroke/TIA. Patient not a candidate for tPA, as unknown last known well, and her examination is nonfocal with NIH stroke scale 0. * Alzheimer's dementia, at least moderate to severe in degree. Multiple family members with positive family history of Alzheimer's dementia as mentioned above * Acute UTI * Hyponatremia * Hypertension * Hyperlipidemia * Ex tobacco use * History of cervical fusion * Hard of hearing Plan: * MRI of the brain revealed no evidence of intracranial mass or acute/subacute infarct. Nonspecific white matter changes, likely secondary to small vessel ischemic disease. I personally reviewed MRI head, agree with the findings. * 2D echo revealed mildly increased left ventricular wall thickness. Left ventricular EF is 55 to 60%. Mildly dilated left atrium. Severe mitral calci fication. Mild MR. Mild AAS. Echodensity noted in the right atrium adjacent to the eustachian valve. * Patient underwent WARREN today, which revealed: The aortic valve is tricuspid and functionally normal. There are small Lambl's excrescences on the aortic valve leaflet tips. Mitral valve is normal with mild MR. Interatrial septum is intact with no evidence of PFO. Left atrial appendage is free of clot. LVEF is 55%. There is prominent eustachian valve noted in the right atrium however no significant mass. * CTA of neck showed patent CTA neck. Mild to moderate mixed atherosclerotic disease bilaterally with no significant stenosis, dissection or pseudoan eurysm. CTA of the head showed no intracranial large vessel occlusion, significant stenosis or sizable aneurysm detected in the limits of CTA. * Patient was not taking any antiplatelet medication at home. Patient's niece states that high-dose aspirin can trigger ulcerative colitis, which could be very problematic. She okayed for starting aspirin 81 mg daily. * Lipid panel with cholesterol 171, LDL 79.9, HDL 77, triglycerides 70. Continue Crestor 5 mg daily. It was started about 3 months ago. Recommend target LDL <70. * Hemoglobin A1c 5.7, B12 998, folate 30.0. * Patient currently on rivastigmine 1.5 mg twice daily. Consider optimizing the dose, if not done in the past. * Neurologically clear if cleared by cardiology. Regarding Lambl's excrescences, we will defer to cardiology, if anticoagulants are needed.
[2023-07-15 10:18] VITALS: BP 164/74; PULSE 66; RESP 18
--- NOTE | 2023-07-16 07:06 | P.DS ---
Providers Date of admission: 07/11/23 21:36 Attending physician: To Lynch Consults: 07/11/23 21:37 Consult Physician Routine Consulting Provider: Sushant Canales Consult Reason/Comments: stroke eval Do you want consulting provider notified?: Already Contacted 07/13/23 12:04 Consult Physician Routine Consulting Provider: Kevin Vásquez Consult Reason/Comments: R atrial densilty/ poss WARREN Do you want consulting provider notified?: Yes Primary care physician: [facility] Course: HISTORY OF PRESENT ILLNESS: 78-year-old female, history of hypertension, hyperlipidemia, who was sent in 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 Baker for stroke workup. Patient has a history of Alzheimer's dementia and usually is A and O x 1-2 which is her baseline. No acute complaints at this time. Has had a normal 6-month follow-up following cataract surgery when her kindergarten teacher assistant saw a new Hollenhorst plaque of the right eye. Patient denies any acute visual changes in the right eye or other acute complaints but was sent here for stroke workup and possible admission. Patient is at her current baseline status at this time. She has been more tired lately at her nursing facility per patient's family member. No other acute complaints at this time. Does have occasional word finding issues. Presents for further evaluation. No acute neurological changes recently per patient or patient's family CT head revealed no CT evidence for any acute intracranial abnormality. Atrophy and chronic microvascular ischemic white matter changes. CTA of neck showed patent CTA neck. Mild to moderate mixed atherosclerotic disease bilaterally with no significant stenosis, dissection or pseudoaneurysm. CTA of the head showed no intracranial large vessel occlusion, significant stenosis or sizable aneurysm detected in the limits of CTA. EKG shows normal sinus rhythm without any acute ST or T wave changes Blood work reveals WBC 9.8, hemoglobin of 14.4 and platelet count of 359, sodium 131, potassium 3.6, BUNs/creatinine of 11/0.58, UA is positive for nitrites and leukocyte esterase with moderate amount of bacteria and WBCs 07/14/2023: Echocardiogram showed well-preserved ejection fraction with severe mitral calcification with mild mitral regurgitation mild aortic stenosis echodensity noted in the right atrium adjacent to the eustachian valve show possible WARREN if clinically indicated. She is scheduled for transesophageal echocardiogram today. Also with neurology request MRI is pending so far today to see if there is any finding consistent with CVA might be affecting her eye stroke. Long discussion with guardian apparently they wish to proceed having patient go to rehab. Patient mobility still significantly decreased. 07/15/2023: She has completed her MRI which did not show any sign of stroke. Also without having transesophageal echocardiogram which failed to show any major abnormality consistent with thrombus of all type. Patient apparently has an arrangement for going to [facility] and she is moving into the Alzheimer's unit at [facility] she had been out of support, family and caregiver are agreeable to this plan of management she will be discharged today hopefully to follow-up in the office in show Plan follow-up with neurology as an outpatient. REVIEW OF SYSTEMS: CONSTITUTIONAL: Well-developed no acute respiratory distress. Very confused EYES: No icterus sclerae, no conjunctivitis. EARS, NOSE, MOUTH, THROAT, and FACE: No sore throat, lymphadenopathy, carotid bruits or deformity. RESPIRATORY: No SOB cough or wheezes. CARDIOVASCULAR: No CP, Palpitation, PND, Orthopnea, or angina. GASTROINTESTINAL: No Abd pain, Nausea or vomiting, no Diarrhea or constipation, No GI Bleed, no distention or masses. GENITOURINARY: Negative for Hematuria or UTI, no kidney stones. Mild incontinence INTEGUMENT/BREAST: Negative for any muscular injury with mild osteoarthritis.. HEMATOLOGIC/LYMPHATIC: Negative for bleed or purpura. MUSCULOSKELTAL: Generalized myalgia and arthralgia. NEURLOGICAL: With severe Alzheimer disease with no major neuro loss. BEHAVIORAL/PSYCH: Advanced dementia. ENDOCRINE: Negative. PHYSICAL EXAMINATION: HEAD: Normal with no signs of head trauma. EYES: PERRLA, EOMI, conjunctiva normal, no discharge. 3 mm and equal bilaterally. ENT: Hearing grossly intact, normal oropharynx. RESPIRATORY: Clear breath sounds bilaterally. No wheezes, rales, or rhonchi. C/V: Regular rate and rhythm. S1 and S2 auscultated, no edema, peripheral pulses 2+ and intact throughout ABD: Abd is soft, nontender, nondistended EXT: Normal range of motion, no obvious deformity SKIN: No rashes or lesions observed on exposed skin. NEURO: Alert and oriented x 1-2 which is patient's baseline with history of dementia. No focal deficits. NIH is 0 for acute deficits. Has chronic word finding issues which is not new. Symptoms confirmed and the chronicity with patient's family member who is at bedside. ASSESSMENT AND PLAN: _Hollenhorst plaque; with CVA/TIA, had finish all her workup with MRI of the brain and transesophageal echocardiogram decide CTA and carotid ultrasound and Holter monitor no finding consistent with any major abnormality at this point despite the finding with ophthalmology still no finding of stroke. Will continue prophylaxis along with antiplatelet agent for now and she is to be seen by ophthalmology as an outpatient. _ UTI; will continue cefuroxime for total of 5 more days. _Hyponatremia; improved sodium back to normal. _Hypertension; still on bisoprolol and lisinopril, very stable. _Hyperlipidemia; Lipitor 10 mg daily _Alzheimer's dementia; patient is currently on rivastigmine 1.5 mg twice daily; neurology recommending to optimize dose; Aricept 5 mg daily was substituted instead of rivastigmine in the hospital. _Ulcerative colitis; still on mesalamine 2.4 g twice a day. _Debility: The patient will need PT OT. Discussion patient stable will be discharged to [facility] and she is going into the Alzheimer's unit will follow-up by neurology as an outpatient and follow-up in our office next few days. Hospital course: Patient was transferred from ophthalmology clinic to the hospital because of possibility of Hollenhorst plaque that was seen with her ophthalmology exam at the time. Patient was seen neurology and her CTA CT of the brain did not show any major abnormality she had transthoracic echocardiogram with suspicion for possible abnormality in the right atrium might require transit esophageal echocardiogram which was done yesterday successfully with no major finding. Also she had an MRI of the brain which failed to show any stroke at this point. Patient was on antiplatelet agent and taking her off to keep her on baby aspirin only. Also found to have UTI was initiated on Rocephin will be switched to cefuroxime to 50 mg twice a day which patient able to tolerate well with no problem. She will be discharged from the hospital into [facility] and might be going into the Alzheimer's unit from here. Time spent on patient discharge was over 32 minutes. Patient Condition at Discharge: Stable Plan - Discharge Summary Discharge Rx Participant: No New Discharge Prescriptions: New Cefuroxime [Ceftin] 250 mg PO BID 6 Days #12 tab Aspirin 81 mg PO DAILY #30 tab Continue Rosuvastatin Calcium 5 mg PO DAILY Melatonin 10 mg PO HS Colestipol HCl 1 gm PO BID@08,1999 Bisoprolol-Hctz 10-6.25 mg [Ziac 10-6.25 MG] 1 tab PO DAILY Benazepril HCl [Lotensin] 20 mg PO DAILY Cholecalciferol [Vitamin D3 (125 Mcg = 5000 Iu)] 125 mcg PO DAILY Vit C/E/Zn/Coppr/Lutein/Zeaxan [Preservision Areds 2 Softgel] 2 cap PO BID Rivastigmine Tartrate [Rivastigmine] 1.5 mg PO BID Multivit-Min/Iron/Folic/Lutein [Centrum Silver Women Tablet] 1 tab PO DAILY Mesalamine [Lialda] 2.4 gm PO BID Folic Acid 1 mg PO DAILY Discontinued Ibuprofen [Advil] 200 mg PO DAILY@0800 Discharge Medication List Benazepril HCl [Lotensin] 20 mg PO DAILY 07/11/23 [History] Bisoprolol-Hctz 10-6.25 mg [Ziac 10-6.25 MG] 1 tab PO DAILY 07/11/23 [History] Cholecalciferol [Vitamin D3 (125 Mcg = 5000 Iu)] 125 mcg PO DAILY 07/11/23 [H istory] Colestipol HCl 1 gm PO BID@0800,199907/11/23 [History] Folic Acid 1 mg PO DAILY 07/11/23 [History] Melatonin 10 mg PO HS 07/11/23 [History] Mesalamine [Lialda] 2.4 gm PO BID 07/11/23 [History] Multivit-Min/Iron/Folic/Lutein [Centrum Silver Women Tablet] 1 tab PO DAILY 07/11/23 [History] Rivastigmine Tartrate [Rivastigmine] 1.5 mg PO BID 07/11/23 [History] Rosuvastatin Calcium 5 mg PO DAILY 07/11/23 [History] Vit C/E/Zn/Coppr/Lutein/Zeaxan [Preservision Areds 2 Softgel] 2 cap PO BID 07/11/23 [History] Aspirin 81 mg PO DAILY #30 tab 07/15/23 [Rx] Cefuroxime [Ceftin] 250 mg PO BID 6 Days #12 tab 07/15/23 [Rx] Follow up Appointment(s)/Referral(s): To Lynch MD [Primary Care Provider] - 1-2 days (please call and make appointment ) Patient Instructions/Handouts: Dementia (GEN), Stroke (GEN) Discharge Disposition: HOME WITH HOME HEALTH SERVICES
== END 2023-07-15 12:51 | disposition home health service (06) ==
LOC: EC 16:06 → 3SCARD 21:36
PROVIDERS: ADMIT Internal Medicine Geriatric Medicine; ATTEND Internal Medicine Geriatric Medicine
DX: R93.0 Abnormal findings on diagnostic imaging of skull and head, not elsewhere classified (principal); G93.89 Other specified disorders of brain; H57.9 Unspecified disorder of eye and adnexa; I10 Essential (primary) hypertension; E78.5 Hyperlipidemia, unspecified; F02.80 Dementia in other diseases classified elsewhere, unspecified severity, without behavioral disturbance, psychotic disturbance, mood disturbance, and anxiety; G30.9 Alzheimer's disease, unspecified; N39.0 Urinary tract infection, site not specified; E87.1 Hypo-osmolality and hyponatremia; K51.90 Ulcerative colitis, unspecified, without complications; I35.0 Nonrheumatic aortic (valve) stenosis; R53.81 Other malaise; F10.20 Alcohol dependence, uncomplicated; F17.200 Nicotine dependence, unspecified, uncomplicated; Z90.710 Acquired absence of both cervix and uterus; Z79.899 Other long term (current) drug therapy; Z82.0 Family history of epilepsy and other diseases of the nervous system; Z98.1 Arthrodesis status
CPT/HCPCS: 96366 ×3; 96361; 96365; 99285; 36415; 93005; 93312; 93320; 93306; 93325; 97161; 97165; 80061; 80053; 80048 ×2; 85652; 82607; 82550; 82746; 85025 ×2; 85610; 85730; 86140; 81001; 87086; 87077; 87186; 83036; 87636; 71046; 70496; 70450; 70498; 70551; G0378 ×5; J2250; J0696 ×4; J3010; Q9967

== ENCOUNTER 2023-08-08 16:29 | Emergency (ER) | payer MEDICARE ==
[2023-08-08 16:41] VITALS: TEMP 98.4
--- NOTE | 2023-08-08 16:51 | ED ---
Fall HPI - General Chief Complaint: Fall Stated Complaint: Fall Time Seen by Provider: 08/08/23 16:46 Source: patient, EMS, RN notes reviewed, old records reviewed Mode of arrival: EMS Limitations: no limitations - History of Present Illness Initial Comments: This is a 78-year-old female to the ER for evaluation. Patient [place] for evaluation of fall fall from standing on Eliquis. 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 Witnessed: no Place Fall Occurred: home Loss of Consciousness: none Prolonged Down Time?: no Symptoms Prior to Fall: none Location: head Location - Extremities: Left: Thigh, Knee Severity: moderate Context: tripped/slipped Associated Symptoms: denies - Related Data Home Medications Medication Instructions Recorded Confirmed Benazepril HCl [Lotensin] 20 mg PO DAILY 07/11/23 07/11/23 Bisoprolol-Hctz 10-6.25 mg [Ziac 1 tab PO DAILY 07/11/23 07/11/23 10-6.25 MG] Cholecalciferol [Vitamin D3 (125 125 mcg PO DAILY 07/11/23 07/11/23 Mcg = 5000 Iu)] Colestipol HCl 1 gm PO BID@0800,2000 07/11/23 07/11/23 Folic Acid 1 mg PO DAILY 07/11/23 07/11/23 Melatonin 10 mg PO HS 07/11/23 07/11/23 Mesalamine [Lialda] 2.4 gm PO BID 07/11/23 07/11/23 Multivit-Min/Iron/Folic/Lutein 1 tab PO DAILY 07/11/23 07/11/23 [Centrum Silver Women Tablet] Rivastigmine Tartrate 1.5 mg PO BID 07/11/23 07/11/23 [Rivastigmine] Rosuvastatin Calcium 5 mg PO DAILY 07/11/23 07/11/23 Vit C/E/Zn/Coppr/Lutein/Zeaxan 2 cap PO BID 07/11/23 07/11/23 [Preservision Areds 2 Softgel] Previous Rx's Medication Instructions Recorded Aspirin 81 mg PO DAILY #30 tab 07/15/23 Cefuroxime [Ceftin] 250 mg PO BID 6 Days #12 tab 07/15/23 Allergies Allergy/AdvReac Type Severity Reaction Status Date / Time acetaminophen [From Percocet] Allergy Unknown Verified 08/08/23 16:42 gabapentin Allergy Anaphylaxis Verified 07/11/23 17:53 hydromorphone [From Dilaudid] Allergy Unknown Verified 08/08/23 16:41 oxycodone [From Percocet] Allergy Unknown Verified 08/08/23 16:42 Sulfa (Sulfonamide Allergy Anaphylaxis Verified 07/11/23 17:53 Antibiotics) morphine AdvReac Itching Verified 07/11/23 17:53 Review of Systems ROS Statement: Those systems with pertinent positive or pertinent negative responses have been documented in the HPI. ROS Other: All systems not noted in ROS Statement are negative. Past Medical History Past Medical History: Dementia, Hyperlipidemia, Hypertension, Memory Impairment, Osteoarthritis (OA) History of Any Multi-Drug Resistant Organisms: None Reported Past Surgical History: Hysterectomy, Orthopedic Surgery Additional Past Surgical History / Comment(s): catarac surgery Past Anesthesia/Blood Transfusion Reactions: No Reported Reaction Past Psychological History: No Psychological Hx Reported Smoking Status: Never smoker Past Alcohol Use History: None Reported Past Drug Use History: None Reported General Exam Limitations: altered mental status General appearance: alert, in no apparent distress Head exam: Present: atraumatic, normocephalic, normal inspection Eye exam: Present: normal appearance, PERRL, EOMI. Absent: scleral icterus, conjunctival injection, periorbital swelling ENT exam: Present: normal exam, mucous membranes moist Neck exam: Present: normal inspection. Absent: tenderness, meningismus, lymphadenopathy Respiratory exam: Present: normal lung sounds bilaterally. Absent: respiratory distress, wheezes, rales, rhonchi, stridor Cardiovascular Exam: Present: regular rate, normal rhythm, normal heart sounds. Absent: systolic murmur, diastolic murmur, rubs, gallop, clicks GI/Abdominal exam: Present: soft, normal bowel sounds. Absent: distended, tenderness, guarding, rebound, rigid Extremities exam: Present: normal inspection, full ROM, normal capillary refill. Absent: tenderness, pedal edema, joint swelling, calf tenderness Back exam: Present: normal inspection Neurological exam: Present: alert, oriented X3, CN II-XII intact Psychiatric exam: Present: normal affect, normal mood Skin exam: Present: warm, dry, intact, normal color. Absent: rash Course Vital Signs 08/08/23 08/08/23 08/08/23 16:30 19:20 21:44 Temperature 98.4 F Pulse Rate 72 74 79 Respiratory 18 16 18 Rate Blood Pressure 128/82 133/77 136/68 O2 Sat by Pulse 99 96 100 Oximetry - Reevaluation(s) Reevaluation #1: 08/08/23 19:21 Medical records reviewed Reevaluation #2: 08/08/23 19:21 Patient symptoms are unchanged, no complaints currently, initially patient did have headache with vomiting Reevaluation #3: 08/08/23 19:21 Patient informed of results questions answered Reevaluation #4: Was pt. sent in by a medical professional or institution (SAMI Carbajal, DIRECT SELLING COUNSELOR, urgent care, hospital, or intermediate...) When possible be specific @ -no Did you speak to anyone other than the patient for history (EMS, parent, family, police, friend...)? What history was obtained from this source @ -no Did you review nursing and triage notes (agree or disagree)? Why? @ -agree Are old charts reviewed (outside hosp., previous admission, EMS record, old EKG, old radiological studies, urgent care reports/EKG's, intermediate records)? Report findings @ -yes Differential Diagnosis (chest pain, altered mental status, abdominal pain women, abdominal pain men, vaginal bleeding, weakness, fever, dyspnea, syncope, headache, dizziness, GI bleed, back pain, seizure, CVA, palpatations, mental health, musculoskeletal)? @ -prior EKG interpreted by me (3pts min.). @ -yes X-rays interpreted by me (1pt min.). @ -yes negative for acute disease CT interpreted by me (1pt min.). @ -Yes negative for acute disease U/S interpreted by me (1pt. min.). @ -no What testing was considered but not performed or refused? (CT, X-rays, U/S, labs)? Why? @ -none What meds were considered but not given or refused? Why? @ -none Did you discuss the management of the patient with other professionals (professionals i.e. SAMI Carbajal, DIRECT SELLING COUNSELOR, lab, RT, psych nurse, director social welfare, machine etcher, teacher, philanthropy officer, mattress spring encaser)? Give summary @ -no Was smoking cessation discussed for >3mins.? @ -no Were there social determinants of health that impacted care today? How? (Homelessness, low income, unemployed, alcoholism, drug addiction, trans portation, low edu. Level, literacy, decrease access to med. care, residential, rehab)? @ -none Was there de-escalation of care discussed even if they declined (Discuss DNR or withdrawal of care, Hospice)? DNR status @ -no What co-morbidities impacted this encounter? (DM, HTN, Smoking, COPD, CAD, Cancer, CVA, ARF, Chemo, Hep., AIDS, mental health diagnosis, sleep apnea, morbid obesity)? @ -none Was patient admitted / discharged? Hospital course, mention meds given and route, prescriptions, significant lab abnormalities, going to OR and other pertinent info. @ - 78 female for fall head injury no traumatic injury noted on Eliquis. Patient has otherwise no injuries no complaints can be discharged Discharge Was critical care preformed (if so, how long)? @ -no Undiagnosed new problem with uncertain prognosis? @ -no Drug Therapy requiring intensive monitoring for toxicity (Heparin, Nitro, Insulin, Cardizem)? @ -no Were any procedures done? @ -no Diagnosis/symptom? @ -Fall with head injury Acute, or Chronic, or Acute on Chronic? @ -Acute Uncomplicated (without systemic symptoms) or Complicated (systemic symptoms)? @ -Complicated Side effects of treatment? @ -no Exacerbation, Progression, or Severe Exacerbation? @ -exacerbation Poses a threat to life or bodily function? How? (Chest pain, USA, VT, pneumonia, PE, COPD, DKA, ARF, appy, cholecystitis, CVA, Diverticulitis, Homicidal, Suicidal, threat to staff... and all critical care pts) @ -yes with extremes of age Reevaluation #5: Differential Headache: Migraine, tension, cluster, carbon monoxide, central venous thrombosis, pension karma temporal arteritis, acute closure glaucoma, intercranial hemorrhage, mastoiditis, sinusitis, head injury, this is not meant to be an all-inclusive list. Medical Decision Making - Medical Decision Making 78 female for fall head injury no traumatic injury noted on Eliquis. Patient has otherwise no injuries no complaints can be discharged - Radiology Data Radiology results: report reviewed (CT brain C-spine x-ray of the chest and hip are negative for traumatic injury), image reviewed Disposition Clinical Impression: Fall, Head injury, Dementia Disposition: HOME SELF-CARE Condition: Good Instructions (If sedation given, give patient instructions): Fall Prevention for Older Adults (ED) Is patient prescribed a controlled substance at d/c from ED?: No Referrals: oT Lynch MD [Primary Care Provider] - 1-2 days Time of Disposition: 19:15
--- NOTE | 2023-08-08 18:25 | CT ---
EXAMINATION TYPE: CT brain cspine wo con CT DLP: 1276.8 mGycm, Automated exposure control for dose reduction was used. DATE OF EXAM: 08/08/2023 5:41 PM COMPARISON: 07/11/2023 CLINICAL INDICATION:Female, 78 years old with history of fall; fall TECHNIQUE: Brain: Multiple axial CT images of the brain were obtained without IV contrast. Cspine: Axial CT images from the skull base to the inferior aspect of T2 we obtained without intraven ous contrast. Coronal and sagittal reformatted images were also reviewed. . FINDINGS: Brain: Extra-axial spaces: No abnormal extra-axial fluid collections. Ventricular system: Dilatation in proportion to cerebral atrophy. Cerebral parenchyma: Cerebral atrophy. No acute intraparenchymal hemorrhage or mass effect. The lorenzo -white junction is well differentiated. Scattered hypoattenuating areas are seen within the white mat ter. Cerebellum: Unremarkable. Mass effect: No evidence of midline shift. Intracranial vasculature: Atherosclerotic calcifications of the intracranial vessels. Soft tissues: Normal. Calvarium/osseous structures: No depressed skull fracture. Paranasal sinuses and mastoid air cells: Clear. Visualized orbits: Bilateral aphakia Cervical spine: Fracture: None. Osseous structures: Fixation changes of the spine at C2-C4 and again at C5 and C6. 2 separate plates are seen anteriorly. Posterior fixation at C3-C4 is present. Hardware appears intact anteriorly and p osteriorly. Multilevel degenerative disc disease changes with endplate spurring and disc osteophyte c omplex's. Vertebral alignment: Within normal limits. Spinal canal/Neural Foramina: No evidence of significant spinal canal narrowing. No evidence for sign ificant neural foraminal stenosis. Neck soft tissues: Prevertebral soft tissues are within normal limits. Other: The airway is patent. The lung apices are clear. IMPRESSION: 1. No acute intracranial process. 2. Nonspecific white matter changes, likely secondary to chronic small vessel ischemic disease. 3. No evidence of cervical spine fracture. 4. Mild multilevel degenerative disc disease. 5. Fixation hardware of the spine appears intact.
--- NOTE | 2023-08-08 19:41 | XR ---
EXAMINATION TYPE: XR Hip LT and AP Pelvis DATE OF EXAM: 08/08/2023 6:59 PM CLINICAL INDICATION:Female, 78 years old with history of fall; [facility] COMPARISON: None. TECHNIQUE: XR Hip LT and AP Pelvis; hip was examined in the frontal and lateral projections and a AP pelvis. FINDINGS: Post arthroplasty changes, hardware is intact, alignment is appropriate. No evidence of fra cture. No evidence of any acute osseous pathology or joint dislocation. Multilevel degeneration carmona ges throughout the spine. Skin samy are lateral thigh. IMPRESSION: Hip arthroplasty with hardware intact and in appropriate alignment. No acute fracture.
--- NOTE | 2023-08-08 19:42 | XR ---
EXAMINATION TYPE: XR chest 1V DATE OF EXAM: 08/08/2023 6:58 PM CLINICAL INDICATION:Female, 78 years old with history of fall; [facility] COMPARISON: Chest radiographs from 07/11/2023 TECHNIQUE: XR chest 1V Frontal view of the chest. FINDINGS: Lungs/Pleura: There is no evidence of pleural effusion, focal consolidation, or pneumothorax. Pulmonary vascularity: Unremarkable. Heart/mediastinum: Cardiomediastinal silhouette is enlarged and stable. Atherosclerotic calcificatio ns are seen in the aorta. Musculoskeletal: Abnormal morphology to the T12 with fracture suggested on limited frontal imaging. T here is fixation hardware in the lower cervical spine. Other findings: None Lines/Tubes: IMPRESSION: T12 abnormal morphology correlate with back pain for fracture. No other acute processes definitively visualized.
[2023-08-08] MEDS: LORazepam 2 MG/ML INJ IM STA (20:14)
[2023-08-08 21:44] VITALS: BP 136/68; PULSE 79; RESP 18
== END 2023-08-08 21:47 | disposition home or self-care (01) ==
LOC: EC 16:29
DX: F03.90 Unspecified dementia, unspecified severity, without behavioral disturbance, psychotic disturbance, mood disturbance, and anxiety (principal); Z88.2 Allergy status to sulfonamides; Z88.5 Allergy status to narcotic agent; Z88.6 Allergy status to analgesic agent; W01.0XXA Fall on same level from slipping, tripping and stumbling without subsequent striking against object, initial encounter; Y92.009 Unspecified place in unspecified non-institutional (private) residence as the place of occurrence of the external cause
CPT/HCPCS: 73502; 71045; 72125; 70450; 99284; 96372; J2060